=== PATIENT | female | born 1960 | race Caucasian/White ===

== ENCOUNTER 2018-07-13 12:22 | Emergency (ER) | payer SELFPAY ==
[~2018-07-13] VITALS: Ht 170.2 cm; Wt 57.7 kg
[2018-07-13 12:57] VITALS: Ht 170.2 cm; Wt 57.7 kg
[2018-07-13] MEDS ORDERED: TOPROL XL25 MG PO (12:59)
[2018-07-13] MEDS ORDERED: LISINOPRIL10 MG PO (12:59)
[2018-07-13 14:13] LABS: APTT 23.7 SECONDS (22.8-39.4); INR 0.95 (0.85-1.17); PROTIME 12.2 SECONDS (11.6-15.0)
[2018-07-13 14:18] LABS: ALBUMIN 3.1 g/dL (3.4-5.0); ALKALINE PHOSPHATASE 58 U/L (46-116); ALT (SGPT) 24 U/L (10-68); BILIRUBIN - TOTAL 0.29 mg/dL (0.2-1.3); CALC OSMOLALITY 251 mosm/kg (275-300); CALCIUM 8.5 mg/dL (8.5-10.1); CHLORIDE - SERUM 92 mmol/L (98-107); CREATININE - SERUM 0.7 mg/dL (0.6-1.3); GLUCOSE 116 mg/dL (74-106); POTASSIUM - SERUM 3.7 mmol/L (3.5-5.1); PROTEIN - SERUM 7.3 g/dL (6.4-8.2); SODIUM 125 mmol/L (136-145); UREA NITROGEN 10 mg/dL (7-18); eGFR NON AFRICAN AMERICAN > 90 mL/min (90-120)
[2018-07-13 14:21] LABS: BASOPHILS 0.2 % (0-2); EOSINOPHILS 1.2 % (0-7); HEMATOCRIT 40.7 % (36.0-48.0); HEMOGLOBIN 14.2 g/dL (12-16); IMMATURE GRANULOCYTES 1.5 % (0-5); LYMPHOCYTES 15.6 % (15-50); MCH 30.5 pg (26.0-34.0); MCHC 34.9 g/dL (31.0-37.0); MCV 87.5 fL (80.0-100.0); MEAN PLATELET VOLUME 9.4 fL (7.4-10.4); MONOCYTES 5.4 % (2-11); NEUTROPHILS 76.1 % (40-80); PLATELET COUNT 331 10x3/uL (130-400); RBC 4.65 10x6/uL (4.00-5.40); RDW 14.5 % (11.5-14.5); WBC 13.9 10x3/uL (4.8-10.8)
[2018-07-13 14:29] LABS: CKMB 2.7 U/L (0.0-3.6); CREATINE KINASE 85 UL (21-215); PRO BNP 324 pg/mL (0-125); TROPONIN-I < 0.017 ng/mL (0.000-0.060)
[2018-07-13] MEDS ORDERED: NEURONTIN 300300 MG PO (16:14)
[2018-07-13 16:57] VITALS: BP 140/84
== END 2018-07-13 16:50 | disposition home or self-care (01) ==
LOC: D.ER 12:22
PROVIDERS: Emergency Medicine
DX: R05 Cough (principal); F10.129 Alcohol abuse with intoxication, unspecified; G62.9 Polyneuropathy, unspecified; I10 Essential (primary) hypertension; F17.200 Nicotine dependence, unspecified, uncomplicated; J44.9 Chronic obstructive pulmonary disease, unspecified

== ENCOUNTER 2018-12-11 15:32 | Observation (INO) | payer MEDICARE ==
[~2018-12-11] VITALS: Ht 170.2 cm; Wt 61.4 kg
[~2018-12-11 15:32] MED LIST: LISINOPRIL10 MG PO; NEURONTIN 300300 MG PO; TOPROL XL25 MG PO
--- NOTE | 2018-12-11 16:30 | NUR ---
PATIENT AWAKE AND ALERT, COLOR WNL FOR RACE. RESPIRATIONS EVEN AND UNLABORED. FAMILY AT BEDSIDE. UPDATED ON PLAN OF CARE AND DELAYS IN CARE. WILL CONTINUE TO MONITOR.
[2018-12-11 16:31] LABS: BASOPHILS 0.3 % (0-2); EOSINOPHILS 1.3 % (0-7); HEMOGLOBIN 10.6 g/dL (12-16); IMMATURE GRANULOCYTES 0.4 % (0-5); LYMPHOCYTES 20.6 % (15-50); MCH 26.3 pg (26.0-34.0); MCHC 32.1 g/dL (31.0-37.0); MCV 81.9 fL (80.0-100.0); MONOCYTES 6.8 % (2-11); NEUTROPHILS 70.6 % (40-80); RBC 4.03 10x6/uL (4.00-5.40); RDW 16.6 % (11.5-14.5); WBC 12.4 10x3/uL (4.8-10.8)
[2018-12-11 16:32] LABS: PLATELET COUNT 236 10x3/uL (130-400)
[2018-12-11 16:39] LABS: APTT 25.6 SECONDS (22.8-39.4); INR 0.99 (0.85-1.17); PROTIME 12.6 SECONDS (11.6-15.0)
[2018-12-11 16:51] LABS: ALBUMIN 3.2 g/dL (3.4-5.0); ALKALINE PHOSPHATASE 90 U/L (46-116); ALT (SGPT) 28 U/L (10-68); BILIRUBIN - TOTAL 0.34 mg/dL (0.2-1.3); CALC OSMOLALITY 276 mosm/kg (275-300); CALCIUM 8.5 mg/dL (8.5-10.1); CARBON DIOXIDE 28.1 mmol/L (21.0-32.0); CHLORIDE - SERUM 99 mmol/L (98-107); CREATININE - SERUM 1.2 mg/dL (0.6-1.3); GLUCOSE 91 mg/dL (74-106); POTASSIUM - SERUM 3.8 mmol/L (3.5-5.1); PROTEIN - SERUM 6.9 g/dL (6.4-8.2); SODIUM 137 mmol/L (136-145); UREA NITROGEN 22 mg/dL (7-18); eGFR NON AFRICAN AMERICAN 49 mL/min (90-120)
[2018-12-11 17:03] LABS: CREATINE KINASE 103 UL (21-215); MAGNESIUM - SERUM 1.8 mg/dL (1.8-2.4); THYROID STIMULATING HORMONE 0.42 uIU/mL (0.36-3.74)
[2018-12-11 17:14] LABS: TROPONIN-I < 0.017 ng/mL (0.000-0.060)
--- NOTE | 2018-12-11 17:30 | NUR ---
PATIENT AWAKE AND ALERT. BLANKS GIVEN FOR COMFORT. NO NEEDS NOTED. UPDATED ON PLAN OF CARE AND DELAYS IN CARE. WILL CONTINUE TO MONITOR.
[2018-12-11 17:48] VITALS: BP 193/102
[2018-12-11 17:56] LABS: APPEARANCE CLEAR (CLEAR); BILIRUBIN NEGATIVE (NEGATIVE); COLOR STRAW (YELLOW); GLUCOSE NEGATIVE (NEGATIVE); KETONE NEGATIVE (NEGATIVE); NITRITE NEGATIVE (NEGATIVE); PROTEIN NEGATIVE (NEGATIVE); UROBILINOGEN NORMAL (NORMAL)
[2018-12-11 18:06] LABS: UDS - AMPHET NEGATIVE QUAL (NEGATIVE); UDS - BARB NEGATIVE QUAL (NEGATIVE); UDS - BENZO NEGATIVE QUAL (NEGATIVE); UDS - COCAINE NEGATIVE QUAL (NEGATIVE); UDS - OPIATE NEGATIVE QUAL (NEGATIVE); UDS - PCP NEGATIVE QUAL (NEGATIVE); UDS - THC NEGATIVE QUAL (NEGATIVE)
[2018-12-11] MEDS ORDERED: TRELEGY ELLIPTA (18:21)
[2018-12-11] MEDS ORDERED: LUNESTA2 M1 PO (18:22)
[2018-12-11] MEDS ORDERED: TOPROL XL100 MG PO (18:22)
[2018-12-11] MEDS ORDERED: TRINTELLIX5 MG PO (18:23)
[2018-12-11] MEDS ORDERED: NEURONTIN800 MG PO (18:23)
[2018-12-11] MEDS ORDERED: HYDROCHLOROTH12.5 M1 PO (18:24)
[2018-12-11] MEDS ORDERED: MOBIC7.5 MG PO (18:24)
[2018-12-11] MEDS ORDERED: CYCLOBENZAPRINE10 MG PO (18:24)
[2018-12-11] MEDS ORDERED: AMITRIPTYLINE100 MG PO (18:25)
[2018-12-11] MEDS ORDERED: LISINOPRIL40 MG PO (18:25)
--- NOTE | 2018-12-11 18:30 | NUR ---
PATIENT AWAKE AND WATCHING TV. RESPIRATIONS EVEN AND UNLABORED. NO NEEDS NOTED. UPDATED ON PLAN OF CARE AND DELAYS IN CARE. WILL CONTINUE TO MONITOR.
--- NOTE | 2018-12-11 19:20 | NUR ---
REPORT GIVEN TO GILMA LUNA IN SBAR FORMAT.
--- NOTE | 2018-12-11 19:28 | NUR ---
PATIENT GIVEN DIET TRAY
[2018-12-11 20:00] VITALS: BP 97/70
--- NOTE | 2018-12-11 20:07 | NUR ---
PT REPORT CALLED TO CONNIE. PT TO FLOOR AT THIS TIME.
--- NOTE | 2018-12-11 20:30 | NUR ---
PT ARRIVED TO FLOOR VIA STRETCHER. ALERT AND ORIENTED. NO SIGNS OF DISTRESS. DENIES PAIN. STATES SOME SORENESS TO LEFT HIP AND RIGHT KNEE. IV LEFT FA INFUSING NS @ 125. VSS. STANDBY ASSISTED PT UP TO BATHROOM WITHOUT DIFFICULTY. DENIES FURTHER NEEDS. BED ALARM ON. BED LOWEST POSITION, SRX2, CL IN REACH. WILL CONT TO MONITOR
[2018-12-12] VITALS: BP 95/61
[2018-12-12 02:18] VITALS: Ht 170.2 cm; Wt 61.4 kg
[2018-12-12 03:00] VITALS: BP 158/86
[2018-12-12 06:32] LABS: BASOPHILS 0.3 % (0-2); HEMATOCRIT 31.4 % (36.0-48.0); HEMOGLOBIN 9.9 g/dL (12-16); IMMATURE GRANULOCYTES 0.4 % (0-5); LYMPHOCYTES 27.3 % (15-50); MCHC 31.5 g/dL (31.0-37.0); MCV 82.4 fL (80.0-100.0); MEAN PLATELET VOLUME 8.9 fL (7.4-10.4); MONOCYTES 8.5 % (2-11); NEUTROPHILS 60.5 % (40-80); PLATELET COUNT 216 10x3/uL (130-400); RBC 3.81 10x6/uL (4.00-5.40); RDW 16.6 % (11.5-14.5)
[2018-12-12 06:43] LABS: WBC 7.4 10x3/uL (4.8-10.8)
[2018-12-12 06:59] LABS: ALBUMIN 2.8 g/dL (3.4-5.0); ANION GAP 14.6 mmol/L (8-16); BILIRUBIN - TOTAL 0.17 mg/dL (0.2-1.3); CALCIUM 8.4 mg/dL (8.5-10.1); CARBON DIOXIDE 25.1 mmol/L (21.0-32.0); CREATININE - SERUM 1.1 mg/dL (0.6-1.3); PROTEIN - SERUM 5.8 g/dL (6.4-8.2)
[2018-12-12 07:01] LABS: POTASSIUM - SERUM 4.7 mmol/L (3.5-5.1)
[2018-12-12 08:04] VITALS: BP 187/96
--- NOTE | 2018-12-12 08:35 | NUR ---
PT LYING IN BED ASLEEP, EASILY AWAKENED, NO NEEDS VOICED. BED IN LOW POSITION, CL IN REACH NO FAMILY AT BEDSIDE, CONTINUE WITH PLAN OF CARE
--- NOTE | 2018-12-12 09:07 | NUR ---
UPDATED PT MED LIST, PT STATES SHE NEEDS HER MEDICATIONS THIS MORNING ADVISED SOON DOCTOR REVIEWS CHART MEDS WILL BE RESTARTED. PT IS UP AD COLLEEN ADVISED TO CALL FOR ASSISTANCE TO PREVENT FALLS SINCE PT IS IN FOR FALL 2 DAYS AGO AND DECREASED LOC. NO OTHER NEEDS VOICED CONTINUE WITH PLAN OF CARE
--- NOTE | 2018-12-12 10:25 | NUR ---
PT UPSET AND CURSING STATES SHE WANTS GABAPENTIN AND DEPRESSION MEDICATION RESTARTED BEFORE SHE WILL TAKE ANYTHING ELSE, ADVSIED HER THAT HER BP MEDICATIONS HAVE BEEN RESTARTED NOW AND WE CAN TALK TO PROVIDER ABOUT RESTARTING OTHER MEDS, PT STATED F*#& THIS AND REFUSED MEDICATION. CALLED [facility] NO ANSWER WILL HAVE PAGED
--- NOTE | 2018-12-12 10:53 | NUR ---
PT STATED SHE IS SHORT OF BREATH AND NEEDS INHALER, STATES SHE TAKES IT ONCE A DAY, ORDERED BREO INH FOR HER PER RT FIORELLA, SAME WHAT SHE TAKES AT HOME, PT TOOK MEDS ADMINISTERED AND STILL VERY UNHAPPY SHE CANNOT HAVE HER DEPRESSION MEDICATION.
--- NOTE | 2018-12-12 11:05 | NUR ---
SPOKE TO PT IN REGARDS TO HER MEDS, ASKED THAT SHE HAVE FAMILY BRING IN HOME MEDS SO WE MAY HAVE WHAT SHE NEEDS RESTARTED, NO OTHER NEEDS VOICED, BHAVANA WITH PLAN OF CARE
[2018-12-12 16:00] VITALS: BP 162/79
--- NOTE | 2018-12-12 17:40 | NUR ---
PT IV IS OUT REFUSED TO GET ANOTHER, PT HAS N/S AT THIS TIME, NO IV MEDS, ADVISED PT I WILL LEAVE IT OUT BUT IF SHE HAS IV MEDS WE WILL RESTICK
--- NOTE | 2018-12-12 18:23 | NUR ---
PT AND FAMILY AT BEDSIDE, PT REQUESTING TO SEE DR CARCAMO, ADVISED SARA MADE ROUNDS EARLIER BUT WILL SEE IF HE IS STILL HERE
--- NOTE | 2018-12-12 18:55 | NUR ---
I have reviewed this patient and I concur with the Shift Assessment completed by the Licensed Practical Nurse today this shift.
--- NOTE | 2018-12-12 20:00 | NUR ---
ASSESSSMENT PER FLOWSHEET. REFUSES IV. ALERT/ORIENTED X3. SR UP X2 CALL LIGHT WITHIN REACH. REFUSES SCD'S.
[2018-12-12 20:11] VITALS: BP 152/76
--- NOTE | 2018-12-12 21:00 | NUR ---
MEDS GIVEN PER MAR. PATIENT BECOMES VERY LOUD AND UPSET CAUSE MD HAS PLACED HER SLEEPING MED AND MUSCLE RELAXERS ON HOLD FOR NOW. INFORMED PATIENT OF THIS ORDER. WILL HAVE TO SPEAK WITH MD IN AM. SEAMARK ADVANCED OPERATOR MAINTAINER WILL NOT REORDER MED THAT HAVE BEEN PLACED ON HOLD BY .
--- NOTE | 2018-12-13 | NUR ---
PT COUGHS UP CLEAR FLUID. STATES ACID RELUX PROBLEMS.
--- NOTE | 2018-12-13 01:47 | NUR ---
EYES CLOSED RESPIRATIONS WITH EASE AND UNLABORED. SR UP X2 CALL LIGHT WITHIN REACH.
--- NOTE | 2018-12-13 03:19 | NUR ---
EYES CLOSED RESPIRATIONS WITH EASE AND UNLABORED. SR UP X2 CALL LIGHT WITHIN REACH.
[2018-12-13 04:55] VITALS: BP 157/77
[2018-12-13 06:21] LABS: ALKALINE PHOSPHATASE 87 U/L (46-116); ALT (SGPT) 24 U/L (10-68); BILIRUBIN - TOTAL 0.11 mg/dL (0.2-1.3); CALC OSMOLALITY 282 mosm/kg (275-300); CALCIUM 8.4 mg/dL (8.5-10.1); CARBON DIOXIDE 26.4 mmol/L (21.0-32.0); CHLORIDE - SERUM 107 mmol/L (98-107); GLUCOSE 89 mg/dL (74-106); POTASSIUM - SERUM 4.4 mmol/L (3.5-5.1); SODIUM 142 mmol/L (136-145); UREA NITROGEN 15 mg/dL (7-18); eGFR NON AFRICAN AMERICAN 78 mL/min (90-120)
[2018-12-13 06:29] LABS: CREATININE - SERUM 0.8 mg/dL (0.6-1.3)
[2018-12-13 07:17] LABS: BASOPHILS 0.3 % (0-2); EOSINOPHILS 2.7 % (0-7); HEMATOCRIT 32.3 % (36.0-48.0); HEMOGLOBIN 10.1 g/dL (12-16); IMMATURE GRANULOCYTES 0.3 % (0-5); LYMPHOCYTES 26.2 % (15-50); MCH 26.2 pg (26.0-34.0); MCHC 31.3 g/dL (31.0-37.0); MCV 83.7 fL (80.0-100.0); MONOCYTES 8.2 % (2-11); NEUTROPHILS 62.3 % (40-80); RBC 3.86 10x6/uL (4.00-5.40); RDW 16.8 % (11.5-14.5)
[2018-12-13 07:24] LABS: PLATELET COUNT 124 10x3/uL (130-400); WBC 9.4 10x3/uL (4.8-10.8)
[2018-12-13 09:33] VITALS: BP 184/101
[2018-12-13 12:00] VITALS: BP 196/107
--- NOTE | 2018-12-13 12:07 | NUR ---
PER DIRECTOR PAYMENT PT BP IS 195/105, ADMINISTERED PRN CATAPRES FOR PT ELEVATED BP, PT REQUESTED TYLENOL WELL AND IF LUNESTA CAN BE RESTARTED, ADVISED PT TO SPEAK WITH HOSPITALIST IN REGARDS TO RESTARTING MEDS
[2018-12-13 15:01] VITALS: BP 160/76
--- NOTE | 2018-12-13 18:37 | NUR ---
I have reviewed this patient and I concur with the Shift Assessment completed by the Licensed Practical Nurse today this shift.
--- NOTE | 2018-12-13 20:05 | NUR ---
PT INQUIRED ON LUNESTA BEING RESTARTED HAD SPOKEN WITH DR MEDINA EARLIER TODAY IN REGARDS TO HER REQUEST FOR LUNESTA, PER DR CARCAMO PT MUST BE CLEARED BY NEURO FIRST BEFORE RESTARTING THAT DUE TO POSSIBLE COMPLICATIONS. TRIEDE EXPLAINING IT TO PT AND SHE CURSED THE WHOLE TIME I WAS SPEAKING AND TOLD ME TO LEAVE, WILL PASS MESSAGE ON TO PM NURSE
--- NOTE | 2018-12-13 20:19 | NUR ---
OT NOTE:(OBSERVATION) PT COMPLETED TOILETING AND HYGIENE WITH SPV. PT COMPLETED ADL MOB WITH SPV. THANK YOU, YOHANNES ONEAL
--- NOTE | 2018-12-13 20:30 | NUR ---
WATCHING TV QUIELTY.NO DISTRESS NOTED. NO COMPLAITNS VOCIED. CL IN REACH
[2018-12-13 21:22] VITALS: BP 172/87
[2018-12-14 00:38] VITALS: BP 152/80
--- NOTE | 2018-12-14 03:00 | NUR ---
I have reviewed this patient and I concur with the Shift Assessment completed by the Licensed Practical Nurse today this shift.
[2018-12-14 05:03] VITALS: BP 184/89
[2018-12-14 06:04] LABS: BASOPHILS 0.2 % (0-2); EOSINOPHILS 2.9 % (0-7); HEMATOCRIT 33.4 % (36.0-48.0); HEMOGLOBIN 10.4 g/dL (12-16); IMMATURE GRANULOCYTES 0.6 % (0-5); LYMPHOCYTES 25.1 % (15-50); MCH 25.9 pg (26.0-34.0); MCHC 31.1 g/dL (31.0-37.0); MCV 83.3 fL (80.0-100.0); MEAN PLATELET VOLUME 9.4 fL (7.4-10.4); MONOCYTES 7.6 % (2-11); NEUTROPHILS 63.6 % (40-80); RBC 4.01 10x6/uL (4.00-5.40); RDW 16.5 % (11.5-14.5); WBC 9.4 10x3/uL (4.8-10.8)
[2018-12-14 06:09] LABS: ALBUMIN 3.1 g/dL (3.4-5.0); ANION GAP 9.3 mmol/L (8-16); BILIRUBIN - TOTAL 0.21 mg/dL (0.2-1.3); CARBON DIOXIDE 32.4 mmol/L (21.0-32.0); PROTEIN - SERUM 6.6 g/dL (6.4-8.2)
[2018-12-14 06:25] LABS: POTASSIUM - SERUM 3.7 mmol/L (3.5-5.1)
[2018-12-14 06:36] LABS: PLATELET COUNT 255 10x3/uL (130-400)
[2018-12-14 09:16] VITALS: BP 196/111
[2018-12-14 13:37] VITALS: BP 170/90
[2018-12-14 16:48] VITALS: BP 150/90
--- NOTE | 2018-12-14 17:11 | NUR ---
I have reviewed this patient and I concur with the Shift Assessment completed by the Licensed Practical Nurse today this shift.
--- NOTE | 2018-12-14 19:16 | NUR ---
OT NOTE: (OBSERVATION) PT COMPLETED BED MOB AND ADL MOB WITH SPV/MOD I. PT COMPLETED EOB SITTING BALANCE WITH SPV/MOD I. PT COMPLETED TOILETING WITH SPV. PT COMPLETED BUE AROM EXS. THANK YOU, YOHANNES ONEAL
--- NOTE | 2018-12-14 20:30 | NUR ---
BASSEM FROM TRANSFER SERVICE CALLED. STATES" DOCTOR FROM [facility] SPOKE WITH DR TALAVERA AND [facility] DOCTOR SAYS PATIENT CAN BEEN TREATED THROUGH OUTPATIENT AT [facility]" PATIENT WILL NOT BE TRANSFERRED.
[2018-12-14 22:12] VITALS: BP 176/97
[2018-12-15 00:45] VITALS: BP 142/74
--- NOTE | 2018-12-15 03:37 | NUR ---
I have reviewed this patient and I concur with the Shift Assessment completed by the Licensed Practical Nurse today this shift.
[2018-12-15 04:41] LABS: BASOPHILS 0.2 % (0-2); EOSINOPHILS 3.6 % (0-7); HEMATOCRIT 33.5 % (36.0-48.0); HEMOGLOBIN 10.6 g/dL (12-16); IMMATURE GRANULOCYTES 0.4 % (0-5); LYMPHOCYTES 28.5 % (15-50); MCH 26.2 pg (26.0-34.0); MCHC 31.6 g/dL (31.0-37.0); MCV 82.7 fL (80.0-100.0); MEAN PLATELET VOLUME 9.2 fL (7.4-10.4); MONOCYTES 8.1 % (2-11); NEUTROPHILS 59.2 % (40-80); PLATELET COUNT 237 10x3/uL (130-400); RBC 4.05 10x6/uL (4.00-5.40); RDW 16.4 % (11.5-14.5); WBC 9.8 10x3/uL (4.8-10.8)
[2018-12-15 05:12] VITALS: BP 134/76
[2018-12-15 05:14] LABS: BILIRUBIN - TOTAL 0.16 mg/dL (0.2-1.3); CALCIUM 8.9 mg/dL (8.5-10.1); CARBON DIOXIDE 30.6 mmol/L (21.0-32.0); CREATININE - SERUM 0.9 mg/dL (0.6-1.3); POTASSIUM - SERUM 3.6 mmol/L (3.5-5.1); PROTEIN - SERUM 6.7 g/dL (6.4-8.2)
[2018-12-15 08:45] VITALS: BP 155/82
--- NOTE | 2018-12-15 09:52 | MORECARE ---
CASE MANAGEMENT DISCHARGE SUMMARY PATIENT: ALEXANDRIA HERMOSILLO UNIT: [id number] ADM DATE: 12/11/18 AGE: 58 : 58 SEX: F ROOM/BED: D.2224 AUTHOR: MARA,DOC PHYSICIAN: REFERRING PHYSICIAN: SHOAIB FORMAN MD DATE OF SERVICE: 12/15/18 Discharge Plan Patient Name: ALEXANDRIA HERMOSILLO Facility: [facility]:[place] : 1960 Planned Disposition: Home Anticipated Discharge Date: Discharge Date: Expected LOS: Initial Reviewer: [email or web address] Initial Review Date: 12/15/2018 Generated: 12/15/18 10:52 am Comments DCP- Discharge Planning Updated by [email or web address]: Cammy Bernardo on 12/15/18 8:[address] Patient Name: ALEXANDRIA HERMOSILLO Admission Status: ER Accout number: [id number] Admission Date: 12-11-2018 : 1960 Admission Diagnosis: Attending: SHOAIB FORMAN Current LOS: 4 Anticipated DC Date: Planned Disposition: Home Primary Insurance: [facility] MEDICARE SOLUTIONS Discharge Planning Comments: CM met with patient to complete initial dc planning assessment. CM educated patient on the CM role and verbal consent given by patient to complete assessment. Patient lives at home with her niece and her girlfriend. At discharge patient plans to return and feels this is a safe discharge. CM discussed availability of home health, rehab services, and medical equipment. Patient denied known discharge needs at this time. Patient does not have a PCP at this time, states she may be using Dr. Curiel. I provided her with the physician referral line [phone] and [facility] for more immediate needs [phone]. CM will continue to follow and will assist as needed with dc plans/needs. Site Operations Manager: Cammy Bernardo DCP- Discharge Planning Updated by [email or web address]: Cammy Bernardo on 12/14/18 2:[address] Transfer center called earlier to transfer to [facility] per Dr. 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 Florinda from the transfer center called and states they need to have her images uploaded on trauma image to their facility. Dr. Hickmann states they are unable to do that. I spoke with Jeffy in [place] and he states he will be able to do it. Dr. Howell is the asking physician for this. Cm will continue to follow and assist with discharge planning/needs. DCPIA - Discharge Planning Initial Assessment Updated by [email or web address]: Cammy Bernardo on 12/15/18 9:46 am * Is the patient Alert and Oriented? Yes * How many steps to enter\exit or inside your home? 5-6/0 * PCP No PCP * Pharmacy [facility] on [address] * Preadmission Environment Home with Family * ADLs Independent * Equipment None * List name and contact numbers for known caregivers / representatives who currently or will assist patient after discharge: Dayna little - [phone] * Verbal permission to speak to the caregivers and representatives has been obtained from the patient. Yes * Community resources currently utilized None * Additional services required to return to the preadmission environment? No * Can the patient safely return to the preadmission environment? Yes * Has this patient been hospitalized within the prior 30 days at any hospital? No External Providers External Provider: [facility] Next Contact Date: Service Request Date: Service Type: Resolution: Reviewer: Comments: Coverage Notice Reviewer: [email or web address] - Cammy Bernardo Notice Issued Date-Time: 12/12/2018 16:51 Notice Type: Medicare Outpatient Observation Notice Notice Delivered To: Patient Relationship to Patient: Self Monotype Machinist Name: Delivery Method: HAND - Hand Delivered Yael Days: Prior Verbal Notification: Recipient Understood Notice: Yes Recipient Signature: Yes Med Rec Note Co-signed by Attending: Coverage Notice Comment: TINY explained, signed, given, copy placed in MR Patient Name: ALEXANDRIA HERMOSILLO Page [phone] at 0952 All edits/amendments must be made on the electronic document DICTATION DATE: 12/15/18950 AUTO SERVICE STATION ATTENDANT: DANK 12/15/18950 RPT#: [id number] DC DATE: STATUS: ADM IN [facility] [address] [place] [address] END OF REPORT
[2018-12-15] MEDS ORDERED: CATAPRES0.1 MG PO (11:54)
[2018-12-15] MEDS ORDERED: LISINOPRIL40 MG PO (11:54)
[2018-12-15 12:48] VITALS: BP 168/82
--- NOTE | 2018-12-15 12:58 | MORECARE ---
CASE MANAGEMENT DISCHARGE SUMMARY PATIENT: ALEXANDRIA HERMOSILLO UNIT: [id number] ADM DATE: 12/11/18 AGE: 58 : 58 SEX: F ROOM/BED: D.2224 AUTHOR: MARADOC PHYSICIAN: REFERRING PHYSICIAN: SHOAIB FORMAN MD DATE OF SERVICE: 12/15/18 Discharge Plan Patient Name: ALEXANDRIA HERMOSILLO Facility: [facility]:[place] : 1960 Planned Disposition: Home Anticipated Discharge Date: Discharge Date: Expected LOS: Initial Reviewer: [email or web address] Initial Review Date: 12/15/2018 Generated: 12/15/18 1:58 pm Comments DCP- Discharge Planning Updated by [email or web address]: Cammy Bernardo on 12/15/18 11:[address] Patient Name: ALEXANDRIA HERMOSILLO Encounter No: [id number] : 1960 Primary Insurance: [place] [employer] Anticipated DC Date: Planned Disposition: Home External Planned Provider: : DCP follow-up note: Patient and family in agreement with discharge plan. No changes to plan. Plans to return home today with niece. UAMS to call the patient with first available appointment. Case management will follow and assist as needed. Cammy Bernardo DCP- Discharge Planning Updated by [email or web address]: Cammy Bernardo on 12/15/18 8:[address] Patient Name: ALEXANDRIA HERMOSILLO Admission Status: ER Accout number: [id number] Admission Date: 12-11-2018 : 1960 Admission Diagnosis: Attending: SHOAIB FORMAN Current LOS: 4 Anticipated DC Date: Planned Disposition: Home Primary Insurance: [place] [employer] Discharge Planning Comments: CM met with patient to complete initial dc planning assessment. CM educated patient on the CM role and verbal consent given by patient to complete assessment. Patient lives at home with her niece and her girlfriend. At discharge patient plans to return and feels this is a safe discharge. CM discussed availability of home health, rehab services, and medical equipment. Patient denied known discharge needs at this time. Patient does not have a PCP at this time, states she may be using Dr. Curiel. I provided her with the physician referral line [phone] and [facility] for more immediate needs [phone]. CM will continue to follow and will assist as needed with dc plans/needs. Geomorphologist: Cammy Bernardo DCP- Discharge Planning Updated by [email or web address]: Cammy Bernardo on 12/14/18 2:[address] Transfer center called earlier to transfer to [facility] per Dr. 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 Florinda from the transfer center called and states they need to have her images uploaded on trauma image to their facility. Dr. Walker states they are unable to do that. I spoke with Jeffy in [place] and he states he will be able to do it. Dr. Howell is the asking physician for this. Cm will continue to follow and assist with discharge planning/needs. DCPIA - Discharge Planning Initial Assessment Updated by [id number]: Cammy Bernardo on 12/15/18 9:46 am * Is the patient Alert and Oriented? Yes * How many steps to enter\exit or inside your home? 5-0 * PCP No PCP * Pharmacy [facility] on [address] * Preadmission Environment Home with Family * ADLs Independent * Equipment None * List name and contact numbers for known caregivers / representatives who currently or will assist patient after discharge: Dayna little - [phone] * Verbal permission to speak to the caregivers and representatives has been obtained from the patient. Yes * Community resources currently utilized None * Additional services required to return to the preadmission environment? No * Can the patient safely return to the preadmission environment? Yes * Has this patient been hospitalized within the prior 30 days at any hospital? No Coverage Notice Reviewer: [id number] - Cammy Bernardo Notice Issued Date-Time: 12/12/2018 16:51 Notice Type: Medicare Outpatient Observation Notice Notice Delivered To: Patient Relationship to Patient: Self Online Services Manager Name: Delivery Method: HAND - Hand Delivered Yael Days: Prior Verbal Notification: Recipient Understood Notice: Yes Recipient Signature: Yes Med Rec Note Co-signed by Attending: Coverage Notice Comment: TINY explained, signed, given, copy placed in MR Last DP export: 12/15/18 8:52 am Patient Name: ALEXANDRIA HERMOSILLO Page [phone] at 1258 All edits/amendments must be made on the electronic document DICTATION DATE: 12/15/181257 THREAD TWISTER: DANK 12/15/181257 RPT#: [id number] DC DATE: STATUS: ADM IN [facility] [address] [place] [address] END OF REPORT
--- NOTE | 2018-12-15 15:02 | NUR ---
DISCUSSED DISCHARGE, MEDICATION AND FOLLOW-UP WITH PATIENT. WAITING FOR NIECE TO MONONITROTOLUENE OPERATOR.
--- NOTE | 2018-12-15 16:38 | NUR ---
OT NOTE: PT COMPLETED ADL MOB AND SIT TO STAND WITH MOD I/SPV. PT COMPLETED HYGIENE TASKS WITH SPV. THANK YOU, YOHANNES ONEAL
--- NOTE | 2018-12-15 17:01 | NUR ---
OT NOTE: PT REMAINS INDEP WITH MOBILITY AND AMB IN ROOM AND TO BATHROOM, HOWEVER, NOTICEABLE PAIN WITH CERTAIN MOVEMENTS INCLUDING STAND TO SIT AND WT SHIFTING TO R SIDE. PT WITH CONCERNS REGARDING WHAT TO DO ABOUT HIP PAIN, SHE IS CERTAIN SOMETHING IS WRONG, AND THEN ALSO DISCUSSED NEEDING SOMETHING DONE WITH SHUNT IN HER HEAD. PT ALL OVER THE BOARD WITH VARIOUS QUESTIONS AND RESPONSES. HOWEVER, ADL MCF[place]EN, SHE IS DOING WELL. AGAIN, PT IS BELIEVABLE WITH PAIN IN HIP, ADELINE DURING CERTAIN MOVEMENTS OF HIP FLEX AND WT BEARING. NEERAJ DAWN, OTR/L
--- NOTE | 2018-12-15 17:06 | NUR ---
I have reviewed this patient and I concur with the Shift Assessment completed by the Licensed Practical Nurse today this shift.
--- NOTE | 2018-12-15 18:50 | NUR ---
PATIENT STATED THAT HER RIDE WOULD BE OUT FRONT. ALL BELONGINGS SENT WITH PATIENT. DISCHARGED HOME VIA WHEELCHAIR BY ELOISA WILLS.
--- NOTE | 2018-12-16 09:40 | MORECARE ---
CASE MANAGEMENT DISCHARGE SUMMARY PATIENT: ALEXANDRIA HERMOSILLO UNIT: [id number] ADM DATE: 12/11/18 AGE: 58 : 58 SEX: F ROOM/BED: D.2224 AUTHOR: MARADOC PHYSICIAN: REFERRING PHYSICIAN: SHOAIB FORMAN MD DATE OF SERVICE: 12/16/18 Discharge Plan Patient Name: ALEXANDRIA HERMOSILLO Facility: [facility]:[place] : 1960 Planned Disposition: Home Anticipated Discharge Date: Discharge Date: 12/15/2018 Expected LOS: 0 Initial Reviewer: [email or web address] Initial Review Date: 12/15/2018 Generated: 12/16/18 10:40 am Comments DCP- Discharge Planning Updated by [email or web address]: Cammy Bernardo on 12/15/18 11:[address] Patient Name: ALEXANDRIA HERMOSILLO Encounter No: [id number] : 1960 Primary Insurance: [facility] MEDICARE SOLUTIONS Anticipated DC Date: Planned Disposition: Home External Planned Provider: : DCP follow-up note: Patient and family in agreement with discharge plan. No changes to plan. Plans to return home today with niece. UAMS to call the patient with first available appointment. Case management will follow and assist as needed. Cammy Bernardo DCP- Discharge Planning Updated by [email or web address]: Cammy Bernardo on 12/15/18 8:[address] Patient Name: ALEXANDRIA HERMOSILLO Admission Status: ER Accout number: [id number] Admission Date: 12-11-2018 : 1960 Admission Diagnosis: Attending: SHOAIB FORMAN Current LOS: 4 Anticipated DC Date: Planned Disposition: Home Primary Insurance: [facility] MEDICARE SOLUTIONS Discharge Planning Comments: CM met with patient to complete initial dc planning assessment. CM educated patient on the CM role and verbal consent given by patient to complete assessment. Patient lives at home with her niece and her girlfriend. At discharge patient plans to return and feels this is a safe discharge. CM discussed availability of home health, rehab services, and medical equipment. Patient denied known discharge needs at this time. Patient does not have a PCP at this time, states she may be using Dr. Curiel. I provided her with the physician referral line [phone] and [facility] for more immediate needs [phone]. CM will continue to follow and will assist as needed with dc plans/needs. Power Builder Developer: Cammy Az DCP- Discharge Planning Updated by [id number]: Cammy Orrforrest on 12/14/18 2:[address] Transfer center called earlier to transfer to [facility] per Dr. 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 Florinda from the transfer center called and states they need to have her images uploaded on trauma image to their facility. Dr. Walker states they are unable to do that. I spoke with Jeffy in [place] and he states he will be able to do it. Dr. Howell is the asking physician for this. Cm will continue to follow and assist with discharge planning/needs. DCPIA - Discharge Planning Initial Assessment Updated by [email or web address]: Cammy Bernardo on 12/15/18 9:46 am * Is the patient Alert and Oriented? Yes * How many steps to enter\exit or inside your home? 5-0 * PCP No PCP * Pharmacy [facility] [address] * Preadmission Environment Home with Family * ADLs Independent * Equipment None * List name and contact numbers for known caregivers / representatives who currently or will assist patient after discharge: Dayna little - [phone] * Verbal permission to speak to the caregivers and representatives has been obtained from the patient. Yes * Community resources currently utilized None * Additional services required to return to the preadmission environment? No * Can the patient safely return to the preadmission environment? Yes * Has this patient been hospitalized within the prior 30 days at any hospital? No Coverage Notice Reviewer: [email or web address] - Cammy Bernardo Notice Issued Date-Time: 12/12/2018 16:51 Notice Type: Medicare Outpatient Observation Notice Notice Delivered To: Patient Relationship to Patient: Self Mailroom Assistant Name: Delivery Method: HAND - Hand Delivered Yael Days: Prior Verbal Notification: Recipient Understood Notice: Yes Recipient Signature: Yes Med Rec Note Co-signed by Attending: Coverage Notice Comment: TINY explained, signed, given, copy placed in MR Last DP export: 12/15/18 11:58 am Patient Name: ALEXANDRIA HERMOSILLO Page 58573 at 0940 All edits/amendments must be made on the electronic document DICTATION DATE: 12/16/18939 TORPEDO WORKER: DANK 12/16/18939 RPT#: [id number] DC DATE:12/15/18 STATUS: DIS IN [facility] [address] [facility] [place] [address] END OF REPORT
== END 2018-12-15 18:50 | disposition home or self-care (01) ==
LOC: D.ER 15:32 → OBSVTIME 19:13 → D.MS 19:13
PROVIDERS: Family Medicine; ADMIT Internal Medicine Nephrology; ATTEND Internal Medicine Nephrology
DX: G93.41 Metabolic encephalopathy (principal); F17.213 Nicotine dependence, cigarettes, with withdrawal; Z98.2 Presence of cerebrospinal fluid drainage device; D50.9 Iron deficiency anemia, unspecified; J44.9 Chronic obstructive pulmonary disease, unspecified; F32.9 Major depressive disorder, single episode, unspecified; F41.9 Anxiety disorder, unspecified

== ENCOUNTER → 2019-02-27 14:58 | Outpatient (CLI) | payer MEDICARE, MEDICAID ==
[2018-12-12 02:18] VITALS: BMI 21.2
[~2019-02-27 14:58] MED LIST changes: +AMITRIPTYLINE100 MG PO; +CATAPRES0.1 MG PO; +CYCLOBENZAPRINE10 MG PO; +HYDROCHLOROTH12.5 M1 PO; +LISINOPRIL40 MG PO; +LUNESTA2 M1 PO; +MOBIC7.5 MG PO; +NEURONTIN800 MG PO; +TOPROL XL100 MG PO; +TRELEGY ELLIPTA; +TRINTELLIX5 MG PO
== END | disposition home or self-care (01) ==
LOC: D.CT 14:58
PROVIDERS: ATTEND Clinical Nurse Specialist Family Health
DX: M25.552 Pain in left hip (principal)

== ENCOUNTER → 2019-03-16 14:41 | Outpatient (CLI) | payer MEDICARE, MEDICAID ==
[2018-12-12 02:18] VITALS: BMI 21.2
== END | disposition home or self-care (01) ==
LOC: D.MAMMO 02-07 15:15
PROVIDERS: ATTEND Nurse Practitioner Family
DX: Z12.31 Encounter for screening mammogram for malignant neoplasm of breast (principal); R06.02 Shortness of breath

== ENCOUNTER → 2019-04-03 16:55 | Outpatient (CLI) | payer MEDICARE, MEDICAID ==
[2018-12-12 02:18] VITALS: BMI 21.2
[~2019-04-03 16:55] MED LIST changes: +ACETAMINOPHEN500 M1 PO; +ALBUTEROL SULF8.5 GM INH; +IBUPROFEN800 MG PO; +ZOFRAN ODT4 MG/UDTAB PO
== END | disposition home or self-care (01) ==
LOC: D.LABREF 16:55
PROVIDERS: ATTEND Orthopaedic Surgery
DX: M17.11 Unilateral primary osteoarthritis, right knee (principal)

== ENCOUNTER 2019-05-06 11:35 | Emergency (ER) | payer MEDICARE, MEDICAID ==
[~2019-05-06] VITALS: Ht 170.2 cm; Wt 63.6 kg
[~2019-05-06 11:35] MED LIST changes: -ACETAMINOPHEN500 M1 PO; -ALBUTEROL SULF8.5 GM INH; -IBUPROFEN800 MG PO; -ZOFRAN ODT4 MG/UDTAB PO
[2019-05-06 11:37] VITALS: Ht 170.2 cm; Wt 63.6 kg
[2019-05-06 12:29] LABS: BASOPHILS 0.2 % (0-2); EOSINOPHILS 1.2 % (0-7); HEMATOCRIT 34.9 % (36.0-48.0); HEMOGLOBIN 11.8 g/dL (12-16); IMMATURE GRANULOCYTES 0.4 % (0-5); MCH 25.6 pg (26.0-34.0); MCHC 33.8 g/dL (31.0-37.0); MCV 75.7 fL (80.0-100.0); MEAN PLATELET VOLUME 8.6 fL (7.4-10.4); MONOCYTES 6.7 % (2-11); NEUTROPHILS 78.5 % (40-80); PLATELET COUNT 296 10x3/uL (130-400); RBC 4.61 10x6/uL (4.00-5.40); RDW 16.1 % (11.5-14.5); WBC 13.7 10x3/uL (4.8-10.8)
[2019-05-06 12:45] LABS: ALBUMIN 3.8 g/dL (3.4-5.0); ANION GAP 14.8 mmol/L (8-16); BILIRUBIN - TOTAL 0.41 mg/dL (0.2-1.3); CALCIUM 9.5 mg/dL (8.5-10.1); CARBON DIOXIDE 27.3 mmol/L (21.0-32.0); CREATININE - SERUM 0.9 mg/dL (0.6-1.3); POTASSIUM - SERUM 4.1 mmol/L (3.5-5.1); PROTEIN - SERUM 7.4 g/dL (6.4-8.2)
[2019-05-06 13:03] LABS: APPEARANCE CLEAR (CLEAR); BILIRUBIN NEGATIVE (NEGATIVE); COLOR YELLOW (YELLOW); GLUCOSE NEGATIVE (NEGATIVE); KETONE NEGATIVE (NEGATIVE); NITRITE NEGATIVE (NEGATIVE); PROTEIN NEGATIVE (NEGATIVE); UROBILINOGEN NORMAL (NORMAL)
[2019-05-06 13:04] LABS: BACTERIA MODERATE /hpf (NEGATIVE); EPITHELIAL CELLS 0-5 /hpf (0-5); WHITE CELLS - URINE 0-5 /hpf (NEGATIVE)
[2019-05-06] MEDS ORDERED: CYCLOBENZAPRINE10 MG PO (13:21)
[2019-05-06] MEDS ORDERED: IBUPROFEN800 MG PO (13:21)
[2019-05-06] MEDS ORDERED: ACETAMINOPHEN500 M1 PO (13:21)
[2019-05-06] MEDS ORDERED: ZOFRAN ODT4 MG/UDTAB PO (13:21)
[2019-05-06 13:33] VITALS: BP 156/91
[2019-05-06] MEDS ORDERED: ALBUTEROL SULF8.5 GM INH (13:46)
== END 2019-05-06 13:34 | disposition home or self-care (01) ==
LOC: D.ER 11:35
PROVIDERS: Family Medicine
DX: M25.552 Pain in left hip (principal)

== ENCOUNTER → 2019-05-12 12:59 | Outpatient (CLI) | payer MEDICARE, MEDICAID ==
[2019-05-06 11:37] VITALS: BMI 21.9
[~2019-05-12 12:59] MED LIST changes: +ACETAMINOPHEN500 M1 PO; +ALBUTEROL SULF8.5 GM INH; +IBUPROFEN800 MG PO; +ZOFRAN ODT4 MG/UDTAB PO
== END | disposition home or self-care (01) ==
LOC: D.RT 05-08 15:15 → D.CT 05-08 15:30 → D.RT 05-09 14:30
PROVIDERS: ATTEND Internal Medicine Pulmonary Disease
DX: J44.9 Chronic obstructive pulmonary disease, unspecified (principal)

== ENCOUNTER 2019-06-22 17:45 | Observation (INO) | payer MEDICARE, MEDICAID ==
[~2019-06-22] VITALS: Ht 170.2 cm; Wt 61.4 kg
[2019-06-22] MEDS ORDERED: BUSPAR 15 MG TA15 MG PO ×2 (18:05→21:27)
[2019-06-22] MEDS ORDERED: OXYCODONE HCL10 MG PO (18:06)
[2019-06-22] MEDS ORDERED: PROCARDIA XL30 MG PO (18:07)
[2019-06-22] MEDS ORDERED: BAYER CHEWABLE81 MG PO (18:07)
[2019-06-22] MEDS ORDERED: REXULTI1 MG PO (18:08)
[2019-06-22] MEDS ORDERED: OMEPRAZOLE40 MG PO (18:08)
[2019-06-22] MEDS ORDERED: NEXIUM40 MG PO (18:09)
[2019-06-22 18:10] LABS: BASOPHILS 0.3 % (0-2); EOSINOPHILS 3.2 % (0-7); HEMATOCRIT 30.6 % (36.0-48.0); HEMOGLOBIN 8.9 g/dL (12-16); IMMATURE GRANULOCYTES 0.4 % (0-5); LYMPHOCYTES 20.7 % (15-50); MCH 24.6 pg (26.0-34.0); MCHC 29.1 g/dL (31.0-37.0); MCV 84.5 fL (80.0-100.0); MEAN PLATELET VOLUME 9.1 fL (7.4-10.4); MONOCYTES 9.8 % (2-11); NEUTROPHILS 65.6 % (40-80); RBC 3.62 10x6/uL (4.00-5.40); RDW 17.1 % (11.5-14.5); WBC 13.2 10x3/uL (4.8-10.8)
[2019-06-22 18:12] LABS: PLATELET COUNT 458 10x3/uL (130-400)
[2019-06-22 18:18] LABS: ANION GAP 8.6 mmol/L (8-16); CALCIUM 8.6 mg/dL (8.5-10.1); CARBON DIOXIDE 32.2 mmol/L (21.0-32.0); POTASSIUM - SERUM 4.8 mmol/L (3.5-5.1)
[2019-06-22 18:24] LABS: ALBUMIN 3.1 g/dL (3.4-5.0); BILIRUBIN - TOTAL 0.47 mg/dL (0.2-1.3); MAGNESIUM - SERUM 1.9 mg/dL (1.8-2.4); PROTEIN - SERUM 7.3 g/dL (6.4-8.2)
[2019-06-22 19:26] VITALS: BP 136/74
--- NOTE | 2019-06-22 19:50 | NUR ---
PT LAYING IN BED, RESTING WITH EYES CLOSED. RESPIRATIONS EVEN AND UNLABORED. WILL CONTINUE TO MONITOR.
[2019-06-22 20:12] VITALS: BP 158/54
[2019-06-22 20:21] LABS: APPEARANCE CLEAR (CLEAR); BILIRUBIN NEGATIVE (NEGATIVE); COLOR STRAW (YELLOW); GLUCOSE NEGATIVE (NEGATIVE); KETONE NEGATIVE (NEGATIVE); NITRITE NEGATIVE (NEGATIVE); PROTEIN NEGATIVE (NEGATIVE); SPECIFIC GRAVITY 1.005 (1.005-1.020); UROBILINOGEN NORMAL (NORMAL)
[2019-06-22 20:31] LABS: UDS - AMPHET NEGATIVE QUAL (NEGATIVE); UDS - BARB NEGATIVE QUAL (NEGATIVE); UDS - BENZO NEGATIVE QUAL (NEGATIVE); UDS - COCAINE NEGATIVE QUAL (NEGATIVE); UDS - OPIATE POSITIVE QUAL (NEGATIVE); UDS - PCP NEGATIVE QUAL (NEGATIVE); UDS - THC POSITIVE QUAL (NEGATIVE)
--- NOTE | 2019-06-22 21:12 | NUR ---
PT RESTING WITH EYES OPEN. NO SIGNS DISTRESS. PT DENIES FURTHER NEEDS. URINE SENT TO LAB. WILL CONTINUE TO MONITOR.
[2019-06-22] MEDS ORDERED: NEURONTIN 300300 MG (21:13)
[2019-06-22] MEDS ORDERED: NEURONTIN 300300 MG PO (21:24)
[2019-06-22] MEDS ORDERED: TRINTELLIX20 MG PO (21:24)
--- NOTE | 2019-06-22 21:57 | NUR ---
ARRIVED TO ROOM VIA ER STAFF IN WHEEL CHAIR. TRANSFERED BY SELF TO BED. CONVERSATION IS CONFUSED AND NOT CLEAR. UNABLE TO TELL THIS NURSE WHEN ANY OF HER MEDICATION WAS LAST TAKEN OR HOW MUCH WAS TAKEN. THIS NURSE COUNTED AND LOGGED ALL MEDS IN BOTTLES AND DELIVERED TO PHARMACY FOR LOCK UP. WILL BE RETURNED UPON DISCHARGE. PATIENT IS ABLE TO ANSWER YES OR NO QUESTIONS BUT IS VERY CONFUSED AT THIS TIME. HER PAIN IS AT A 2/10 TO KNEE. SHOWS NO S/S OF ANY ACUTE DISTRESS, BUT WILL NOTE ANY CHANGE.
--- NOTE | 2019-06-23 00:20 | NUR ---
CT ORDER ACKNOWLEDGED, 20G TO RIGHT INNER FOREARM STARTED. PT IS VERY LETHARGIC BUT AROUSES TO LOUD VERBAL STIMULI CONVERSATION IS STILL CONFUSED AND SLIGHTLY GARBLED. WILL NOTE ANY CHANGE.
--- NOTE | 2019-06-23 02:44 | NUR ---
STILL RESTING DEEPLY THIS SHIFT, AROUSES TO LOUD VERBAL STIMULI AND SOFT TOUCH. UNABLE TO UNDERSTAND SCD AND THEIR PURPOSE AND SEEMS TO GET TRIPPED ON THEM, TOOK THEM OFF THIS SHIFT. WILL REEVALUATE WHEN MORE LUCID.
[2019-06-23 02:51] VITALS: BP 129/52; Ht 170.2 cm; Wt 61.4 kg
--- NOTE | 2019-06-23 02:51 | NUR ---
I have reviewed this patient and I concur with the Shift Assessment completed by the Licensed Practical Nurse today this shift.
[2019-06-23 06:26] LABS: BASOPHILS 0.4 % (0-2); EOSINOPHILS 3.6 % (0-7); HEMATOCRIT 29.6 % (36.0-48.0); HEMOGLOBIN 8.6 g/dL (12-16); IMMATURE GRANULOCYTES 0.2 % (0-5); LYMPHOCYTES 26.5 % (15-50); MCH 24.7 pg (26.0-34.0); MCHC 29.1 g/dL (31.0-37.0); MCV 85.1 fL (80.0-100.0); MEAN PLATELET VOLUME 9.3 fL (7.4-10.4); MONOCYTES 11.2 % (2-11); NEUTROPHILS 58.1 % (40-80); PLATELET COUNT 477 10x3/uL (130-400); RBC 3.48 10x6/uL (4.00-5.40)
--- NOTE | 2019-06-23 06:29 | NUR ---
PT IS MORE ALERT THIS MORNING, REQUESTING SODA, MAKING LUCID CONVERSATION, DID NOT REQUIRE MUCH RE ORIENTING UPON WAKING. WILL NOTE ANY CHANGE.
[2019-06-23 06:45] LABS: WBC 8.3 10x3/uL (4.8-10.8)
[2019-06-23 06:47] LABS: ALBUMIN 2.9 g/dL (3.4-5.0); ALKALINE PHOSPHATASE 68 U/L (46-116); ALT (SGPT) 26 U/L (10-68); BILIRUBIN - TOTAL 0.51 mg/dL (0.2-1.3); CALCIUM 8.9 mg/dL (8.5-10.1); CARBON DIOXIDE 26.9 mmol/L (21.0-32.0); CHLORIDE - SERUM 106 mmol/L (98-107); GLUCOSE 79 mg/dL (74-106); MAGNESIUM - SERUM 1.6 mg/dL (1.8-2.4); PHOSPHOROUS 3.5 mg/dL (2.5-4.9); POTASSIUM - SERUM 4.4 mmol/L (3.5-5.1); PROTEIN - SERUM 6.5 g/dL (6.4-8.2); SODIUM 141 mmol/L (136-145)
[2019-06-23 06:48] LABS: CALC OSMOLALITY 281 mosm/kg (275-300); CREATININE - SERUM 0.7 mg/dL (0.6-1.3); UREA NITROGEN 17 mg/dL (7-18); eGFR NON AFRICAN AMERICAN > 90 mL/min (90-120)
--- NOTE | 2019-06-23 06:55 | NUR ---
ALERT AND ORIENTED, RESTING IN BED. C/O PAIN, NO ORDERS FOR PAIN MEDICINE AT THIS TIME. NO S/S OF ACUTE DISTRESS NOTED. IV TO LEFT WRIST, SL. SITE PATENT WITHOUT REDNESS OR SWELLING. IV TO LEFT UPPER ARM, NS INFUSING @ 100ML/HR. SITE PATENT WITHOUT REDNESS OR SWELLING. UP WITH ASSIST. DENIES ANY NEEDS AT THIS TIME. CALL LIGHT IN REACH. WILL CONTINUE TO MONITOR.
--- NOTE | 2019-06-23 07:47 | NUR ---
CALLED TO ROOM BY PATIENT CARE NURSE. EXTREMELY UPSET AND ASKING FOR PAIN MEDS. PT STATES SHE DID NOT INTEND TO OVERDOSE, JUST TO TAKE CARE OF HER PAIN. INFORMED PATIENT THAT FURNACE INSTALLER WAS CURRENTLY ON FLOOR AND WOULD BE IN TO SEE HER IN A FEW MINUTES AND COULD NOT GIVE HER MEDS WITHOUT SEEING HER FIRST. INFORMED BOTH MYSELF AND NURSE THAT SHE IS GOING TO LEAVE AMA. STATED SHE WOULD DO THAT. FORM TAKEN TO PATIENT BY CARE NURSE AND PT IS CHANGING MIND AT THIS MOMENT.
[2019-06-23 08:34] VITALS: BP 120/63
[2019-06-23 08:43] LABS: % SATURATION 3 % (15-55); IRON 17 ug/dl (35-150); TOTAL IRON BIND CAPACITY 468 ug/dl (260-445)
[2019-06-23 08:50] LABS: UNSAT IRON BIND CAPACITY 451 ug/dl (150-375)
[2019-06-23 09:17] LABS: FERRITIN 43 ng/mL (3-244); LDH 421 U/L (81-234)
[2019-06-23 12:42] VITALS: BP 129/56
--- NOTE | 2019-06-23 14:25 | NUR ---
I have reviewed this patient and I concur with the Shift Assessment completed by the Licensed Practical Nurse today this shift.
--- NOTE | 2019-06-23 16:21 | MORECARE ---
CASE MANAGEMENT DISCHARGE SUMMARY PATIENT: ALEXANDRIA HERMOSILLO UNIT: [id number] ADM DATE: 06/22/19 AGE: 58 : 58 SEX: F ROOM/BED: D.2209 AUTHOR: SUMEET TERRY PHYSICIAN: REFERRING PHYSICIAN: SHOAIB FORMAN MD DATE OF SERVICE: 06/23/19 Discharge Plan Patient Name: ALEXANDRIA HERMOSILLO Facility: [facility]:[place] : 1960 Planned Disposition: Home Anticipated Discharge Date: Discharge Date: Expected LOS: Initial Reviewer: [email or web address] Initial Review Date: 06/23/2019 Generated: 06/23/19 5:21 pm Patient Name: ALEXANDRIA HERMOSILLO Page [phone] at 1621 All edits/amendments must be made on the electronic document DICTATION DATE: 06/23/191620 THIRD RAIL INSTALLER: DANK 06/23/19 162 RPT#: [id number] DC DATE: STATUS: ADM IN [facility] [address] [place] [address] END OF REPORT
--- NOTE | 2019-06-23 18:16 | NUR ---
DISCHARGED PATIENT HOME WITH FAMILY VIA WHEELCHAIR ACCOMPANIED BY STAFF. DISCONTINUED IV, CATHETER TIP INTACT. WENT OVER DISCHARGE INSTRUCTIONS WITH FAMILY, VERBALIZED UNDERSTANDING. DENIES ANY NEEDS AT THIS TIME.
--- NOTE | 2019-06-24 15:59 | MORECARE ---
CASE MANAGEMENT DISCHARGE SUMMARY PATIENT: ALEXANDRIA HERMOSILLO UNIT: [id number] ADM DATE: 06/22/19 AGE: 58 : 58 SEX: F ROOM/BED: D.2209 AUTHOR: SUMEET TERRY PHYSICIAN: REFERRING PHYSICIAN: SHOAIB FORMAN MD DATE OF SERVICE: 06/24/19 Discharge Plan Patient Name: ALEXANDRIA HERMOSILLO Facility: [facility]:[place] : 1960 Planned Disposition: Home Anticipated Discharge Date: Discharge Date: 06/23/2019 Expected LOS: Initial Reviewer: [id number] Initial Review Date: 06/23/2019 Generated: 06/24/19 4:59 pm Last DP export: 06/23/19 3:21 p Patient Name: ALEXANDRIA HERMOSILLO Page [id number] at 1559 All edits/amendments must be made on the electronic document DICTATION DATE: 06/24/19 1559 TRUANT OFFICER: DANK 06/24/19 1559 RPT#: [id number] DC DATE:06/23/19 STATUS: DIS IN [facility] [address] [place] [address] END OF REPORT
== END 2019-06-23 18:19 | disposition home or self-care (01) ==
LOC: D.ER 17:45 → D.MS 19:30 → OBSVTIME 19:30 → D.MS 22:24
PROVIDERS: Emergency Medicine; Family Medicine; ADMIT Internal Medicine Nephrology; ATTEND Internal Medicine Nephrology
DX: T50.911A Poisoning by multiple unspecified drugs, medicaments and biological substances, accidental (unintentional), initial encounter (principal); D50.9 Iron deficiency anemia, unspecified; G47.00 Insomnia, unspecified; F41.8 Other specified anxiety disorders; K21.9 Gastro-esophageal reflux disease without esophagitis; J44.9 Chronic obstructive pulmonary disease, unspecified; I10 Essential (primary) hypertension; T84.84XA Pain due to internal orthopedic prosthetic devices, implants and grafts, initial encounter